=== PATIENT | female | born 1995 | race Caucasian/White ===

== ENCOUNTER 2017-02-24 07:47 | Observation (INO) | payer OTHER ==
[2017-02-24 08:17] VITALS: BP 114/65; PULSE 79
[2017-02-24] MEDS ORDERED: ONDANSETRON HCL 4 MG/2 ML VIAL IV ONE (08:30)
[2017-02-24] MEDS ORDERED: SODIUM CHLORIDE 0.9% FLUSH 10 ML FLUSH IV FLUSH PRN ×2 (08:30→12:00)
[2017-02-24] MEDS ORDERED: METOCLOPRAMIDE HCL 10 MG/2 ML VIAL IV PUSH ONE (08:30)
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
[2017-02-24] MEDS ORDERED: SODIUM CHLORIDE 0.9% FLUSH 10 ML FLUSH IV FLUSH SCH (09:00)
[2017-02-24] MEDS: LACTATED RINGER'S 1000 ML INJ 1,000 ML IV SCH ×3 (09:23→15:16)
[2017-02-24 09:33] LABS: HEMATOCRIT 39.1 % (35.0-46.0); MEAN CORPUSCULAR HEMOGLOBIN 31.1 PG (27.0-34.0); PLATELET COUNT 170 TH/MM3 (150-450); RED BLOOD COUNT 4.39 MIL/MM3 (4.00-5.30); RED CELL DISTRIBUTION WIDTH 12.5 % (11.6-17.2); REVIEW FLAG FINAL; WHITE BLOOD COUNT 8.3 TH/MM3 (4.0-11.0)
[2017-02-24 09:48] VITALS: BP 114/65; PULSE 79; RESP 16; TEMP 97.8
[2017-02-24 09:58] LABS: ALT (GPT) 17 U/L (10-53); ANION GAP 12 MEQ/L (5-15); AST (GOT) 16 U/L (15-37); BICARBONATE 22.5 MEQ/L (21.0-32.0); BLOOD UREA NITROGEN 5 MG/DL (7-18); CHLORIDE 103 MEQ/L (98-107); GLOMERULAR FILTRATION RATE 103 ML/MIN (>89); POTASSIUM 3.2 MEQ/L (3.5-5.1); SODIUM (NA) 137 MEQ/L (136-145)
[2017-02-24 10:00] LABS: ALKALINE PHOSPHATASE 52 U/L (45-117); TOTAL BILIRUBIN ADULT 0.4 MG/DL (0.2-1.0)
[2017-02-24] MEDS ORDERED: PANTOPRAZOLE SODIUM 40 MG VIAL IV PUSH ONE (10:00)
[2017-02-24] MEDS ORDERED: PROMETHAZINE HCL 25 MG SUPP RECTAL ONE (10:00)
[2017-02-24 10:15] LABS: AMPHETAMINE, URINE NEG (NEG); BARBITURATES, URINE NEG (NEG); COCAINE, URINE NEG (NEG)
[2017-02-24 10:18] LABS: BACTERIA, URINE OCC /hpf; BLOOD, URINE NEG (NEG); COMMENT (UR) CULT NOT INDICATED; CULTURE IF INDICATED CULT NOT INDICATED; GLUCOSE,URINE TRACE mg/dL (NEG); KETONE, URINE 150 mg/dL (NEG); MUCUS URINE FEW /lpf (OCC); NITRITE,URINE NEG (NEG); PH, URINE 6.5 (5.0-8.5); SQUAMOUS EPITHELIAL CELL URINE 4 /hpf (0-5); URINE COLOR YELLOW (YELLW/STRAW)
[2017-02-24] MEDS ORDERED: ONDANSETRON HCL 4 MG/2 ML VIAL IV PRN (12:00)
[2017-02-24] MEDS ORDERED: METOCLOPRAMIDE HCL 10 MG/2 ML VIAL IV PUSH SCH (12:00)
[2017-02-24] MEDS ORDERED: ACETAMINOPHEN 325 MG TAB PO PRN (12:00)
[2017-02-24] MEDS ORDERED: ONDANSETRON HCL 4 MG/2 ML VIAL IV SCH (12:00)
[2017-02-24] MEDS ORDERED: PROMETHAZINE HCL 25 MG SUPP RECTAL PRN (12:00)
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
[2017-02-24] MEDS: diphenhydrAMINE HCL 50 MG/ML VIAL IV PUSH SCH ×2 (12:42→18:04)
[2017-02-24] MEDS: ONDANSETRON HCL 4 MG/2 ML VIAL IV SCH ×2 (15:15→20:37)
[2017-02-24] MEDS: METOCLOPRAMIDE HCL 10 MG/2 ML VIAL IV PUSH SCH ×2 (15:15→20:38)
[2017-02-24] MEDS ORDERED: POTASSIUM CHLORIDE INJ 30 MEQ in LACTATED RINGER'S 1000 ML INJ 1,000 ML IV SCH (16:00)
[2017-02-24 20:16] VITALS: BP 113/57; PULSE 92; TEMP 98.7
[2017-02-24] MEDS: SODIUM CHLORIDE 0.9% FLUSH 10 ML FLUSH IV FLUSH SCH (22:11)
[2017-02-25 00:11] VITALS: BP 116/62; PULSE 72
[2017-02-25] MEDS: LACTATED RINGER'S 1000 ML INJ 1,000 ML IV SCH (00:12)
[2017-02-25] MEDS: diphenhydrAMINE HCL 50 MG/ML VIAL IV PUSH SCH ×2 (00:12→05:36)
[2017-02-25 00:56] VITALS: TEMP 98.4
[2017-02-25] MEDS: METOCLOPRAMIDE HCL 10 MG/2 ML VIAL IV PUSH SCH (02:28)
[2017-02-25] MEDS: ONDANSETRON HCL 4 MG/2 ML VIAL IV SCH (02:28)
[2017-02-25 02:34] VITALS: BP 119/66; PULSE 69
[2017-02-25] MEDS ORDERED: BISACODYL 10 MG SUPP RECTAL ONE (03:00)
[2017-02-25 07:12] VITALS: TEMP 98.7
[2017-02-25 07:13] VITALS: BP 113/70; PULSE 78; RESP 12
[2017-02-25 07:22] LABS: BICARBONATE 21.2 MEQ/L (21.0-32.0); POTASSIUM 3.3 MEQ/L (3.5-5.1)
[2017-02-25] MEDS: SODIUM CHLORIDE 0.9% FLUSH 10 ML FLUSH IV FLUSH SCH (07:38)
[2017-02-25] MEDS ORDERED: LACTATED RINGER'S 1000 ML INJ 1,000 ML IV SCH (08:00)
[2017-02-25] MEDS ORDERED: POTASSIUM CHLORIDE INJ 10 MEQ in LACTATED RINGER'S 1000 ML INJ 1,000 ML IV SCH (08:19)
[2017-02-25] MEDS ORDERED: METOCLOPRAMIDE HCL 10 MG TAB PO SCH (09:00)
--- NOTE | 2017-02-25 09:45 | PD.OB.ANTE ---
Subjective Diagnosis: (1) with 16 completed weeks gestation Diagnosis: Principal (2) Vomiting complicating , antepartum Diagnosis: Principal Interval History Patient reports that she tolerated popsicles overnight. She had some nausea at 3 AM but vomiting since yesterday evening. She denies any current abdominal pain. She has no labor signs at this time. She would like to have a banana this morning. Antepartum ROS: Reports: movement normal, Denies: New complaints, Loss of fluid, Vaginal bleeding, Contractions Objective Vital Signs Vital Signs Date Time Temp Pulse Resp B/P Pulse Ox O2 Delivery O2 Flow Rate FiO2 02/25/17 07:13 78 113/70 02/25/17 07:13 12 02/25/17 07:12 98.7 02/25/17 02:34 69 119/66 02/25/17 00:56 98.4 02/25/17 00:11 72 116/62 02/24/17 20:16 98.7 92 113/57 02/24/17 09:48 97.8 79 16 114/65 Lab & Micro Results Test 02/25/17 06:25 Sodium Level 138 MEQ/L Potassium Level 3.3 MEQ/L Chloride Level 107 MEQ/L Carbon Dioxide Level 21.2 MEQ/L Anion Gap 10 MEQ/L Blood Urea Nitrogen 4 MG/DL Creatinine 0.49 MG/DL Estimat Glomerular Filtration 158 ML/MIN Rate Random Glucose 113 MG/DL Calcium Level 7.8 MG/DL Physical Exam GENERAL: Well-nourished, well-developed female. She is in no apparent distress and is no longer dry heaving. SKIN: Warm and dry. No rashes. HEAD: Normocephalic and atraumatic. EYES: No scleral icterus. No injection or drainage. ENT: No nasal drainage noted. Mucous membranes pink. Airway patent. NECK: Supple, trachea midline. No JVD. CARDIOVASCULAR: Regular rate and rhythm without murmurs, gallops, or rubs. RESPIRATORY: Breath sounds equal bilaterally. No accessory muscle use. ABDOMEN/GI: Abdomen soft, non-tender, bowel sounds present, no rebound, no guarding. Fundus palpable below umbilicus, nontender. GENITOURINARY: deferred Uterine Contractions: none FHR: 160bpm this morning EXTREMITIES: No cyanosis or edema. BACK: Nontender without obvious deformity. No CVA tenderness. NEUROLOGICAL: Awake and alert. Motor and sensory grossly within normal limits. Five out of 5 muscle strength in all muscle groups. Normal speech. Assessment and Plan Assessment and Plan 21 year old at 16 and 2/7 weeks weeks admitted on 02/24 for nausea and vomiting, no infectious symptoms. 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 FHR within normal limits Will continue FHR monitoring every shift Visiting from [facility] Nausea and Vomiting in , Second Trimester N/V since first trimester, poorly controlled. Was on Diclegis, then stopped it. Taking Zofran prn at home with no improvement. Weighed 112lb at last appt In ED she received Zofran and Reglan IV, and Phenergan suppository, with continued nausea and retching She was admitted and placed on Reglan 10 mg IV every 6hr, Zofran 4 mg IV every 6hr, and Benadryl 25 mg IV every 6hr Will transition to PO medications today given vomiting has improved. Reglan 10 mg Q6h by mouth, Vistaril 50 mg q6h by mouth If tolerating PO this morning, will discharge home with above PO regimen and PRN Phenergan suppositories, diet instructions Recommend close f/u at home in [place] Marijuana Use Complicating Noted on UDS Counseled on cessation Possibly contributing to symptoms Discussed with Marcela Duong MD R1 Feb 25, 2017 09:45 Marcela Moralez MD R1 Feb 25, 2017 09:45
--- NOTE | 2017-02-25 10:07 | HHI.DCPOC ---
Discharge Care Plan Diagnosis: (1) Vomiting complicating , antepartum (2) with 16 completed weeks gestation Report Symptoms to Your Doctor -Temperature above 100.5 degrees -Redness, of incision or excessive or foul smelling drainage -Unusual pain or calf pain -Increased vaginal bleeding -Painful or difficulty urinating -Feelings of extreme sadness or anxiety after 2 weeks Goals to Promote Your Health * To prevent worsening of your condition and complications * To maintain your health at the optimal level Directions to Meet Your Goals Take your medications as prescribed Follow your dietary instruction Follow activity as directed Ensure plenty of rest for recovery Drink fluids for hydration Keep your appointments as scheduled Take your immunizations and boosters as scheduled If your symptoms worsen call your PCP, if no PCP go to Urgent Care Center or Emergency Room Smoking is Dangerous to Your Health. Avoid second hand smoke Call the 24-hour crisis hotline for domestic abuse at Marcela Moralez MD R1 Feb 25, 2017 10:06
[2017-03-04 12:10] LABS: BATH SALTS (MDPV) UR NEG (NEG); ECSTASY (MDMA) UR NEG (NEG); HEROIN (6-ACETYLMORPHINE) UR NEG (NEG); K2 SPICE UR NEG (NEG); OBMETHADONE UR NEG (NEG); OXYCODONE (PERCODAN) NEG (NEG); PHENCYCLIDINE URINE NEG (NEG)
[2017-03-04 12:11] LABS: GABAPENTIN UR NEG (NEG); HYDROMORPHONE U NEG (NEG)
== END 2017-02-25 11:13 | disposition home or self-care (01) ==
LOC: HOBED 07:47 → H2EA 12:04
PROVIDERS: ADMIT Obstetrics & Gynecology Maternal & Fetal Medicine; ATTEND Obstetrics & Gynecology Maternal & Fetal Medicine
DX: O21.9 Vomiting of pregnancy, unspecified (principal); O99.322 Drug use complicating pregnancy, second trimester; F12.90 Cannabis use, unspecified, uncomplicated; O99.342 Other mental disorders complicating pregnancy, second trimester; F41.9 Anxiety disorder, unspecified; O99.282 Endocrine, nutritional and metabolic diseases complicating pregnancy, second trimester; E86.0 Dehydration; O30.002 Twin pregnancy, unspecified number of placenta and unspecified number of amniotic sacs, second trimester; Z3A.16 16 weeks gestation of pregnancy
CPT/HCPCS: 80048; 80053; 80307; 81001; 85027; 96374; 96375; 99285; C9113; G0378; G0481; J1200; J2405; J2765; J3480; J7120